=== PATIENT | male | born 1945 | race Caucasian/White ===

== ENCOUNTER 2024-03-19 19:48 | Inpatient (IN) | payer MEDICARE, SELFPAY ==
[2024-03-19] VITALS (8 sets, daily range): BP systolic 125–146; BP diastolic 75–105; BMI 21.9
[2024-03-19 14:33] LABS: % Basophils 1.1 % (0-2); % Eosinophils 0.2 % (0-6); % Immature Granulocytes 0.4 % (0-0.5); % Lymphocytes 12.1 % (20.5-51.1); % Monocytes 6.7 % (1.7-9.3); % Neutrophils 79.5 % (42.2-75.2); Absolute Basophils 0.1 10^3/uL (0-0.2); Absolute Lymphocytes 1.1 10^3/uL (1.2-3.4); Absolute Monocytes 0.6 10^3/uL (0.1-0.6); Absolute Neutrophils 7.3 10^3/uL (1.4-6.5); Hematocrit 31.1 % (39.0-52.0); Hemoglobin 10.9 g/dL (13.0-18.0); Mean Corpuscular Hgb 34.7 pg (27.0-31.0); Mean Platelet Volume 9.6 fL (7.4-10.4); Nucleated Red Blood Cells % 0 % (-); Platelet Count 298 10^3/uL (130-400); Red Blood Cell Count 3.14 10^6/uL (4.70-6.10); Red Cell Dist. Width 14.8 % (11.5-14.5); White Blood Cell Count 9.2 10^3/uL (4.8-10.8)
[2024-03-19 14:45] LABS: ALT (SGPT) 58 U/L (0-50); AST (SGOT) 96 U/L (17-59); Albumin 4.4 g/dl (3.5-5.0); Alkaline Phosphatase 74 U/L (38-126); Blood Urea Nitrogen 29 mg/dl (9-20); Calcium 10.7 mg/dl (8.4-10.2); Carbon Dioxide 21 mmol/L (22-30); Chloride 100 mmol/L (98-107); Glucose 138 mg/dl (70-99); Sodium 131 mmol/L (135-145); Total Bilirubin 0.8 mg/dl (0.2-1.3); Total Protein 6.7 g/dl (6.3-8.2); eGFR 56.93
--- NOTE | 2024-03-19 14:51 | ED.GENMED ---
History of Present Illness
General
Chief Complaint: Breathing Problem
Source: patient
Exam Limitations: none
Time Seen by Provider: 03/19/24 14:13
Travel History
Have you had any contact with someone who has COVID-19?: No
Do you have any symptoms of coronavirus? Fever > 100 degrees, chills, cough, shortness of breath, sore throat, loss of taste or smell, muscle aches, or headache?: No
History of Present Illness
History of Present Illness:
Patient has been short of breath for 2 weeks. Treated for pneumonia. Normal care at [facility]. No pleuritic chest pain no cough no fever. Short of breath at rest and significant with exertion
Past History
Past History
ED Past Medical History: Cancer
ED Past Surgical History: Appendectomy, Tonsilectomy and Other (Hernia x 2. Severed right radial artery)
Phy Exam
Physical Exam
Physical Exam:
GENERAL: Alert and oriented in no apparent distress
EYE: Orbits normal.
NECK: Supple, no thyroid palpable
ENT: Pharynx without erythema
CARDIAC: Tachycardic and regular on arrival
LUNGS: Moderate resting tachypnea
ABDOMEN: Soft, without focal tenderness or distention
NEUROLOGICAL: Alert and oriented , grossly non-focal
SKIN: Warm and dry, no rash or lesion, no discoloration, skin intact.
MUSCULOSKELETAL: No edema,no deformity.Good color
PSYCH: Normal and appropriate interaction.
Scores
Heart Failure Risk
Heart Failure Risk Score: Not Applicable
Course
Orders/Labs/Results
Orders:
Orders
03/19/24 14:00
Electrocardiogram (*1) Urgent
Reason for Study: Shortness of Breath
03/19/24 14:01
EKG- Treatment ONCE
03/19/24 14:13
Cardiac Monitoring- Treatment ONCE
IV Insert/Care/Rem.- Treatment PRN
CR Chest Portable - 1 View Urgent
Comment:
Reason For Exam: sob/syncope
Reason Study Needs to be Portable: Unable to Transport
Pulse Ox/cont/shift [RESP] Stat
Quantity: 1
03/19/24 14:27
Complete Blood Count/With Diff Urgent
Comprehensive Metabolic Panel Urgent
NT-proBNP Urgent
Troponin I Urgent
03/19/24 14:42
CT Chest Pe Study Urgent
Comment:
Reason For Exam: Short of breath/tachycardia
Abnormal Lab Results
03/19/24
14:27
RBC 3.14 L 10^6/uL
(4.70-6.10)
Hgb 10.9 L g/dL
(13.0-18.0)
Hct 31.1 L %
(39.0-52.0)
MCV 99.0 H fL
(80.0-94.0)
MCH 34.7 H pg
(27.0-31.0)
RDW 14.8 H %
(11.5-14.5)
Absolute Neuts (auto) 7.3 H 10^3/uL
(1.4-6.5)
Absolute Lymphs (auto) 1.1 L 10^3/uL
(1.2-3.4)
Neutrophils % 79.5 H %
(42.2-75.2)
Lymphocytes % 12.1 L %
(20.5-51.1)
Sodium 131 L mmol/L
(135-145)
Carbon Dioxide 21 L mmol/L
(22-30)
BUN 29 H mg/dl
(9-20)
Glucose 138 H mg/dl
(70-99)
Calcium 10.7 H mg/dl
(8.4-10.2)
AST 96 H U/L
(17-59)
ALT 58 H U/L
(0-50)
03/19/24 14:27
03/19/24 14:27
Vital Signs
Initial and Last Documented VS:
Initial Vital Signs
Temp Pulse Resp BP Pulse Ox
97.5 F 140 30 129/75 98
03/19/24 14:05 03/19/24 14:05 03/19/24 14:05 03/19/24 14:05 03/19/24 14:05
Last Documented Vital Signs
Temp Pulse Resp BP Pulse Ox
97.5 F 106 10 132/99 99
03/19/24 14:05 03/19/24 18:00 03/19/24 18:00 03/19/24 18:00 03/19/24 18:00
MDM/Problems Addressed
Differential Diagnosis Includes:
Significant dyspnea on exertion. Unclear etiology. Possible primary pulmonary issue. However quite tachycardic on arrival to the ER. Warrants further hospitalization and management
*Pulse Oximetry
Patient hypoxic: no
*EKG
Interpreted by ED Provider?: Yes
Interpretation: abnormal
Comparison EKG: changes noted
Heart Rate: 133
Rate: tachycardiac
Rhythm: sinus
Interval: normal interval
QRS Pattern: right bundle branch block
Ischemia: non-specific ST changes
*Steam Plant Control Room Operator Interpretation
Rate: tachycardiac
Interpretation: abnormal
Heart Rate: 115
Rhythm: sinus
*Critical Care Note
Total Time (30-74mins, 75-104mins- exclusive of procedures): Not Applicable
ED Attending Note
-
Portions of this chart may have been created with voice recognition software.� Occasional wrong word or��sound alike� substitutions may have occurred due to the inherent limitations of voice recognition software.
Discharge Plan
Departure
Patient Disposition: Admit
Date of Disposition: 03/19/24
Time of Disposition: 17:17
Presentation/result/management discussed w/ accepting MD/DO: Hospitalist
Discharge Problem:
Severe dyspnea and dyspnea on exertion
Prescriptions:
No Action
diphenoxylate-atropine 2.5-0.025 mg Tablet
1 tab PO QIDPRN PRN (Reason: chemo-induced diarrhea)
pantoprazole 40 mg Tablet,Delayed Release (Dr/Ec)
40 mg PO DAILY
lisinopril 10 mg Tablet
20 mg PO DAILY
metoprolol succinate 25 mg Tablet Extended Release 24 Hr
25 mg PO DAILY
albuterol sulfate 90 mcg/actuation Hfa Aerosol Inhaler
2 puff INHALATION R Q4HPRN PRN (Reason: sob)
cholecalciferol (vitamin D3)
1 tab PO DAILY
cyanocobalamin (vitamin B-12)
1 tab PO DAILY
magnesium
1 tab PO DAILY
atorvastatin 40 mg Tablet
40 mg PO DAILY
Patient Comments:
03/19/2024, last filled on 06/16/2023 for 90-day supply.
Referrals:
UNKNOWN - PT DOES,NOT KNOW [Family Provider] -
Interventions
Interventions:
*Risk Screen - Suicide Last Done: 03/19/24 14:32
*General Assessment Last Done: 03/19/24 14:32
*Neglect/Abuse Screening Last Done: 03/19/24 14:32
*ED COVID-19 Vaccine History Last Done: 03/19/24 14:32
ED- Cardiac Assessment Last Done: 03/19/24 14:20
ED- Pulmonary Assessment Last Done: 03/19/24 14:21
Discharge Date and Time
Print Language: VENEZUELAN
[2024-03-19 14:56] LABS: NT-proBNP 354 pg/ml; Troponin I < 0.012 ng/ml
--- NOTE | 2024-03-19 19:13 | HPS.HSE ---
Family Physician
-
Family Physician: NOT KNOW UNKNOWN - PT DOES
Chief Complaint
-
dyspnea on exertion
History of Present Illness
78 man who has been short of breath for 2 weeks, progressively worsening, leading today to severe MEDINA. He has a history of chronic bronchitis, with multiple episodes a year, usually managed with mucinex. He was Treated for presumed pneumonia as an
outpatient for this current episode. His Normal health care is at [facility]. No pleuritic chest pain no cough no fever. some Short of breath at rest and significantly worse with exertion. He is getting chemo for prostate cancer at
this time.
Medical History
Past Medical History
Past Medical History: Reports Other
Additional Past Medical History:
prostate Cancer, getting chemoo through a port on chest
Appendectomy,
Tonsilectomy
Hernia x 2.
Severed right radial artery
frequent bhronchitis
high cholesterol
Essential HTN
GERD
Past Surgical History: Reports Other
Additional Past Surgical History:
See above
Social History
Tobacco: Non-smoker
Alcohol: Occasional
Drug: None
Family History
Family History: Not pertinent
Allergies / Home Medications
Allergies reflects when Allergies were last updated in [facility].
Home Medications with original date entered in [facility]
Allergy/Medication List:
Allergies
Allergy/AdvReac Type Severity Reaction Status Date / Time
No Known Allergies Allergy Unverified 03/19/24 14:00
Home Medications
albuterol sulfate 90 mcg/actuation aerosol inhaler 2 puff inhalation R Q4HPRN PRN sob 03/19/24
atorvastatin 40 mg tablet 40 mg PO DAILY 03/19/24
cholecalciferol (vitamin D3) 1 tab PO DAILY 03/19/24
cyanocobalamin (vitamin B-12) 1 tab PO DAILY 03/19/24
diphenoxylate-atropine 2.5 mg-0.025 mg tablet 1 tab PO QIDPRN PRN chemo-induced diarrhea 03/19/24
lisinopril 10 mg tablet 20 mg PO DAILY 03/19/24
magnesium 1 tab PO DAILY 03/19/24
metoprolol succinate 25 mg tablet,extended release 24 hr 25 mg PO DAILY 03/19/24
pantoprazole 40 mg tablet,delayed release 40 mg PO DAILY 03/19/24
Review of Systems
-
History Source: Patient
A 12 point ROS was completed and negative except as noted: Yes
Physical Exam
Vital Signs
Vital Signs
Temp Pulse Resp BP Pulse Ox
97.5 F 106 10 132/99 99
03/19/24 14:05 03/19/24 18:00 03/19/24 18:00 03/19/24 18:00 03/19/24 18:00
Physical Exam
General: Well Developed, Well Nourished, No Apparent Distress, Comfortable and Conversant
HEENT: [place] Conjunctivae, Nose Appears Normal and Ears Appear Normal; No Good Dentition
Respiratory: Clear
Cardiac: S1/S2 and Irregular Rhythm
GI: Soft, Non Tender and Non Distended
Musculoskeletal: No Clubbing, No Cyanosis and No Edema
Skin: Warm and Dry; No Rash
Neuro: Awake, Alert, Oriented and AO x 3
Psych: Calm
Laboratory Results
-
03/19/24 14:27
03/19/24 14:27
Laboratory Results
Total Bilirubin 0.8 mg/dl (0.2-1.3) 03/19/24 14:27
AST 96 U/L (17-59) H 03/19/24 14:27
ALT 58 U/L (0-50) H 03/19/24 14:27
Alkaline Phosphatase 74 U/L (38-126) 03/19/24 14:27
Troponin I < 0.012 ng/ml 03/19/24 14:27
Data Reviewed
-
Lab Data: Labs Reviewed by me
Impression/Plan
-
IMPRESSION:
[address] and CXR show no dz. No baseline labs to compare. Other findings:
pulse of 106
New RBBB
NA 131
BUN 29
PLAN:
1. MEDINA, likely viral bronchitis/ COPD
Treat as a copd exacerbation
If not better in am, consult pulmonary
ZACHARY (given ECG change)
Telemetry
2. Na of 131 - likely hypovolemic hyponatremia
Saline overnight
recheck in am
3. BUN/Creat > 20, likely poor po intake
Saline overnight
Recheck in am
Full code
VCD for DVTp
--- NOTE | 2024-03-19 20:40 | PTCARENOTE ---
Pt arrived to unit from ED and ambulated with x1 assist from stretcher to bed. BP on admission 146/99, HR 112. Pt denies any pain at this time but pt reports feeling dizzy when standing and ambulating. Pt oriented to room, call dolan within reach.
IV NS infusing at 100 mL/hr per order. Pt swabbed by this RN for covid and flu A+B. Will continue to monitor.
[2024-03-19] MEDS: NSS 1000 IV (21:22)
[2024-03-19] MEDS: DELTASONE 40 MG PO (21:23)
[2024-03-19 21:25] LABS: COVID-19 Antigen Negative (Negative)
[2024-03-19] MEDS: VIBRAMYCIN 100 MG PO (21:25)
[2024-03-19] MEDS: DUONEB 3 ML INH (21:29)
[2024-03-20] VITALS (8 sets, daily range): BP systolic 91–146; BP diastolic 52–82
--- NOTE | 2024-03-20 06:04 | PTCARENOTE ---
Pt's baseline HR at rest 70s-80s. Pt ambulated to BR with x1 assist and HR went up to 140. Pt asymptomatic except for shortness of breath; pt states this has been his baseline for the past 3 days. HR back in 70s after pt placed back in bed.
[place] CIVILIAN JAIL OFFICER Brittney Silva notified, no new orders at this time.
[2024-03-20] MEDS: LOMOTIL 1 TABLET PO (06:08)
--- NOTE | 2024-03-20 07:27 | PTCARENOTE ---
Pt had two episodes of v-tach while lying in bed at 0614 and 0630 this morning respectively. Both episodes were 20-beats and pt went back to normal sinus in the 70s; pt was asymptomatic for both episodes. House DISCOUNT CLERK Brittney Silva notified about
both episodes and that magnesium was not ordered with AM labs; CAITIE Silva ordered mag to be added to AM labs. Will continue to monitor.
[2024-03-20] MEDS: DUONEB 3 ML INH ×4 (07:32→17:58)
[2024-03-20 08:29] LABS: % Basophils 0.4 % (0-2); % Immature Granulocytes 0.8 % (0-0.5); % Monocytes 3.9 % (1.7-9.3); % Neutrophils 81.9 % (42.2-75.2); Absolute Lymphocytes 0.3 10^3/uL (1.2-3.4); Absolute Monocytes 0.1 10^3/uL (0.1-0.6); Absolute Neutrophils 2.1 10^3/uL (1.4-6.5); Hematocrit 27.4 % (39.0-52.0); Hemoglobin 9.3 g/dL (13.0-18.0); Mean Corp Hgb Conc. 33.9 g/dL (33.0-37.0); Mean Corpuscular Hgb 34.2 pg (27.0-31.0); Mean Corpuscular Volume 100.7 fL (80.0-94.0); Nucleated Red Blood Cells % 0 % (-); Platelet Count 236 10^3/uL (130-400); Red Blood Cell Count 2.72 10^6/uL (4.70-6.10); Red Cell Dist. Width 14.8 % (11.5-14.5); White Blood Cell Count 2.5 10^3/uL (4.8-10.8)
[2024-03-20 08:57] LABS: Magnesium 1.3 mg/dl (1.6-2.3)
[2024-03-20 08:59] LABS: Blood Urea Nitrogen 23 mg/dl (9-20); Calcium 9.7 mg/dl (8.4-10.2); Carbon Dioxide 20 mmol/L (22-30); Chloride 102 mmol/L (98-107); Estimated Creatinine Clearance 47 ml/min; Glucose 162 mg/dl (70-99); Potassium 3.9 mmol/L (3.5-5.1); Sodium 129 mmol/L (135-145); eGFR > 60.00
[2024-03-20] MEDS: ZESTRIL 20 MG PO (10:04)
[2024-03-20] MEDS: MAGNESIUM OXIDE 500 MG PO (10:04)
[2024-03-20] MEDS: VITAMIN B-12 1000 MCG PO (10:04)
[2024-03-20] MEDS: TOPROL XL 25 MG PO (10:04)
[2024-03-20] MEDS: PROTONIX 40 MG PO (10:04)
[2024-03-20] MEDS: VITAMIN D3 (cholecalciferol) 25 MCG PO (10:05)
[2024-03-20] MEDS: VIBRAMYCIN 100 MG PO ×2 (10:05→20:17)
[2024-03-20] MEDS: LIPITOR 40 MG PO (10:05)
[2024-03-20] MEDS: DECADRON 4 MG IV ×2 (10:06→20:18)
[2024-03-20] MEDS: NSS 1000 IV (10:12)
[2024-03-20] MEDS: DELTASONE PO (10:19)
[2024-03-20] MEDS: MAGNESIUM SULFATE 100 IV (10:53)
--- NOTE | 2024-03-20 11:55 | W.PN.HOSP.TC ---
Today's Communication/Plan
-
Started on IV steroids
Continue bronchodilators
Continue p.o. Doxy
Increase metoprolol
Replete mag
Assessment / Plan
Assessment / Plan
IMPRESSION:
[address] and CXR show no dz. No baseline labs to compare. Patient receives all his care at [facility]
PLAN:
MEDINA, likely viral bronchitis/ COPD
Start patient on IV steroids
Continue with bronchodilators
Agree with doxycycline
Follows with pulmonary in [place]
CT chest negative for pulmonary medicine. Mild ascending aortic. No pleural effusions. No pulmonary edema.
Na of 131 - likely hypovolemic hyponatremia
Cont with IVF
If no improvement check urine studies
Elevated creatinine likely secondary p.o. decreased p.o. intake
Baseline labs to compare
Continue with normal saline
Hypomagnesemia
Replete and monitor
NSVT
Replete mag
Increase toprol dose
monitor on tele
No chest pain. Denies any prior cardiac history.
Prostate cancer
Follows with urologist in [place]
Full Code
DVT ppx-lovenox
Anticipated Discharge: > 48 hours
Subjective/Interval History
-
Date of Service: March 20, 2024
Overnight episode of NSVT
Patient denies any palpitations or chest pain
States breathing has improved
Objective Data
-
Labs:
Laboratory Results
03/20/24 03/20/24
06:00 08:10
WBC 2.5 L
Hgb 9.3 L
Hct 27.4 L
Plt Count 236 D
Sodium 129 L
Potassium 3.9
Chloride 102
Carbon Dioxide 20 L
BUN 23 H
Creatinine 1.2
Glucose 162 H
Calcium 9.7
Vital Signs:
Vital Signs
Temp Pulse Resp BP Pulse Ox
98.6 F 81 18 146/82 100
03/20/24 07:17 03/20/24 07:38 03/20/24 07:38 03/20/24 07:17 03/20/24 07:38
I&O
03/19/24 03/20/24 03/21/24
06:59 06:59 06:59
Intake Total 1759
Balance 1759 / 1759
Data Reviewed
-
Total Time Spent with Patient (in minutes): 55
[2024-03-20] MEDS: TOPROL XL 12.5 MG PO (12:24)
[2024-03-20] MEDS: NSS IV (15:55)
[2024-03-20] MEDS: ProAmatine 10 MG PO (17:33)
[2024-03-20] MEDS: LOVENOX 40 MG SC (17:37)
[2024-03-20] MEDS: MELATONIN 5 MG PO (20:17)
[2024-03-21] VITALS (7 sets, daily range): BP systolic 90–128; BP diastolic 55–96; PULSE 64–73; O2SAT 99; BMI 21.9
[2024-03-21] MEDS: DUONEB 3 ML INH ×4 (07:56→18:18)
[2024-03-21] MEDS: TOPROL XL 25 MG PO (09:10)
[2024-03-21] MEDS: MAGNESIUM OXIDE 500 MG PO (09:10)
[2024-03-21] MEDS: VIBRAMYCIN 100 MG PO ×2 (09:11→20:38)
[2024-03-21] MEDS: ZESTRIL 20 MG PO (09:11)
[2024-03-21] MEDS: VITAMIN D3 (cholecalciferol) 25 MCG PO (09:11)
[2024-03-21] MEDS: PROTONIX 40 MG PO (09:11)
[2024-03-21] MEDS: LIPITOR 40 MG PO (09:11)
[2024-03-21] MEDS: VITAMIN B-12 1000 MCG PO (09:11)
[2024-03-21] MEDS: DECADRON 4 MG IV ×2 (09:14→20:38)
--- NOTE | 2024-03-21 10:01 | W.PN.HOSP.TC ---
Today's Communication/Plan
-
Check labs
Ambulatory pulse ox on room air
Discharge planning
Assessment / Plan
Assessment / Plan
Gen-AAOx3, NAD
HEENT-NC, AT, anicteric, clear oral mm
Neck-supple
CV-reg, no M, +S1/S2
Lungs-clear B/L
Abd-soft, NT, ND
Ext-no edema
Musculoskeletal-no cyanosis, clubbing
Skin-warm and dry
Neuro-grossly non-focal
Psych-calm, cooperative
Acute COPD exacerbation -improving clinically. No wheezing today. Continue steroids, inhalers, doxycycline. Add Acapella. Check ambulatory pulse ox on room air.
Follows with pulmonary in [place]
CT chest negative for pulmonary medicine. Mild ascending aortic. No pleural effusions. No pulmonary edema.
Hyponatremia -possibly hypovolemic. Labs pending for today.
Cont with IVF
If no improvement check urine studies
Elevated creatinine likely secondary p.o. decreased p.o. intake
Baseline labs to compare
Continue with normal saline
Bicytopenia -recheck CBC today.
Hypomagnesemia -recheck magnesium today.
NSVT -possibly due to hypomagnesemia. Resolved. Continue Toprol-XL.
Prostate cancer -on chemotherapy.
Follows with urologist in [place]
Full Code
DVT ppx-lovenox
Dispo - potential discharge in the next 24 hours if stable.
Anticipated Discharge: Within 24 hours
Subjective/Interval History
-
Date of Service: March 21, 2024
Patient seen and examined. No complaints. Shortness of breath improving.
Objective Data
-
Labs:
Laboratory Results
03/21/24 03/21/24
09:51 09:52
WBC Pending
Hgb Pending
Hct Pending
Plt Count Pending
Sodium Pending
Potassium Pending
Chloride Pending
Carbon Dioxide Pending
BUN Pending
Creatinine Pending
Glucose Pending
Calcium Pending
Total Bilirubin Pending
AST Pending
ALT Pending
Alkaline Phosphatase Pending
Vital Signs:
Vital Signs
Temp Pulse Resp BP Pulse Ox
97.6 F 84 16 128/96 100
03/21/24 07:00 03/21/24 09:10 03/21/24 08:00 03/21/24 09:10 03/21/24 08:00
I&O
03/20/24 03/21/24 03/22/24
06:59 06:59 06:59
Intake Total 1760 / 1760 1100 / 1100
Balance 1760 / 1760 1100 / 1100
Review of Systems
-
History Source: Patient
All other systems: Reviewed and negative
[2024-03-21 10:31] LABS: % Basophils 0.2 % (0-2); % Immature Granulocytes 0.6 % (0-0.5); % Lymphocytes 16.6 % (20.5-51.1); % Monocytes 5.5 % (1.7-9.3); % Neutrophils 77.1 % (42.2-75.2); Absolute Lymphocytes 0.8 10^3/uL (1.2-3.4); Absolute Monocytes 0.3 10^3/uL (0.1-0.6); Absolute Neutrophils 3.9 10^3/uL (1.4-6.5); Hematocrit 24.9 % (39.0-52.0); Hemoglobin 8.3 g/dL (13.0-18.0); Mean Corp Hgb Conc. 33.3 g/dL (33.0-37.0); Mean Corpuscular Hgb 33.7 pg (27.0-31.0); Mean Corpuscular Volume 101.2 fL (80.0-94.0); Mean Platelet Volume 10.1 fL (7.4-10.4); Nucleated Red Blood Cells % 0 % (-); Platelet Count 229 10^3/uL (130-400); Red Blood Cell Count 2.46 10^6/uL (4.70-6.10); Red Cell Dist. Width 14.7 % (11.5-14.5); White Blood Cell Count 5.1 10^3/uL (4.8-10.8)
[2024-03-21 11:10] LABS: ALT (SGPT) 35 U/L (0-50); AST (SGOT) 49 U/L (17-59); Albumin 3.1 g/dl (3.5-5.0); Alkaline Phosphatase 55 U/L (38-126); Blood Urea Nitrogen 24 mg/dl (9-20); Carbon Dioxide 20 mmol/L (22-30); Chloride 105 mmol/L (98-107); Estimated Creatinine Clearance 43 ml/min; Glucose 113 mg/dl (70-99); Magnesium 2.2 mg/dl (1.6-2.3); Potassium 3.9 mmol/L (3.5-5.1); Sodium 132 mmol/L (135-145); Total Bilirubin 0.4 mg/dl (0.2-1.3); Total Protein 5.2 g/dl (6.3-8.2); eGFR 56.93
--- NOTE | 2024-03-21 15:13 | CM ---
manager event reviewed patient's chart and met with patient and patient lives with his sister in a one story home with no steps to enter, patient is independent with adl's and ambulation, no dme, patient drives, home when stable, no needs. Patient
has a prescription plan and uses [facility].
Plan; Home with sister when stable, patient to have his friend pick him up.
[2024-03-21] MEDS: LOVENOX 40 MG SC (18:01)
[2024-03-22 03:46] VITALS: BP 114/63
[2024-03-22] MEDS: DUONEB 3 ML INH ×2 (07:23→11:18)
[2024-03-22 07:30] VITALS: BP 107/60
[2024-03-22] MEDS: MAGNESIUM OXIDE 500 MG PO (08:26)
[2024-03-22] MEDS: VIBRAMYCIN 100 MG PO (08:26)
[2024-03-22] MEDS: ZESTRIL 20 MG PO (08:26)
[2024-03-22] MEDS: LIPITOR 40 MG PO (08:26)
[2024-03-22] MEDS: VITAMIN B-12 1000 MCG PO (08:26)
[2024-03-22] MEDS: PROTONIX 40 MG PO (08:26)
[2024-03-22] MEDS: TOPROL XL 25 MG PO (08:27)
[2024-03-22 08:28] VITALS: BP 132/68; PULSE 77; O2SAT 99
[2024-03-22 08:29] VITALS: BP 132/68; PULSE 77; O2SAT 99
[2024-03-22] MEDS: DECADRON 4 MG IV (08:29)
[2024-03-22] MEDS: VITAMIN D3 (cholecalciferol) 25 MCG PO (08:33)
--- NOTE | 2024-03-22 09:21 | W.PN.HOSP.TC ---
Today's Communication/Plan
-
Await labs
Discharge
Assessment / Plan
Assessment / Plan
Gen-AAOx3, NAD
HEENT-NC, AT, anicteric, clear oral mm
Neck-supple
CV-reg, no M, +S1/S2
Lungs-clear B/L
Abd-soft, NT, ND
Ext-no edema
Musculoskeletal-no cyanosis, clubbing
Skin-warm and dry
Neuro-grossly non-focal
Psych-calm, cooperative
Acute COPD exacerbation -improving clinically. No wheezing today. Continue steroids, inhalers, doxycycline, Acapella. Ambulatory pulse ox on room air was normal, does not qualify for home oxygen.
Follows with pulmonary in [place], but he wants to start seeing pulmonary at . Will provide information.
CT chest negative for pulmonary embolism. Mild ascending aortic. No pleural effusions. No pulmonary edema.
Hyponatremia -possibly hypovolemic. Labs pending for today.
Cont with IVF
If no improvement check urine studies
Elevated creatinine likely secondary p.o. decreased p.o. intake
Baseline labs to compare
Continue with normal saline
Bicytopenia -likely due to chemotherapy. CBC pending for today.
Hypomagnesemia -improved.
NSVT -possibly due to hypomagnesemia. Resolved. Continue Toprol-XL.
Prostate cancer -on chemotherapy.
Follows with urologist in [place]
Full Code
DVT ppx-lovenox
Dispo -anticipate discharge today if labs stable. Outpatient follow-up.
Anticipated Discharge: Today
Subjective/Interval History
-
Date of Service: March 22, 2024
Patient seen and examined. Denies shortness of breath. Complaining of mucus in his chest.
Objective Data
-
Labs:
Laboratory Results
03/22/24
09:13
WBC Pending
Hgb Pending
Hct Pending
Plt Count Pending
Sodium Pending
Potassium Pending
Chloride Pending
Carbon Dioxide Pending
BUN Pending
Creatinine Pending
Glucose Pending
Calcium Pending
Vital Signs:
Vital Signs
Temp Pulse Resp BP Pulse Ox
98.1 F 68 20 107/60 98
03/22/24 07:30 03/22/24 08:32 03/22/24 08:32 03/22/24 08:26 03/22/24 08:32
I&O
03/21/24 03/22/24 03/23/24
06:59 06:59 06:59
Intake Total 1100 / 1100
Balance 1100 / 1100
Review of Systems
-
History Source: Patient
All other systems: Reviewed and negative
[2024-03-22 10:34] LABS: % Immature Granulocytes 0.2 % (0-0.5); % Lymphocytes 10.1 % (20.5-51.1); % Monocytes 2.9 % (1.7-9.3); % Neutrophils 86.8 % (42.2-75.2); Absolute Lymphocytes 0.4 10^3/uL (1.2-3.4); Absolute Monocytes 0.1 10^3/uL (0.1-0.6); Absolute Neutrophils 3.6 10^3/uL (1.4-6.5); Hematocrit 25.3 % (39.0-52.0); Hemoglobin 8.2 g/dL (13.0-18.0); Mean Corp Hgb Conc. 32.4 g/dL (33.0-37.0); Mean Corpuscular Hgb 33.6 pg (27.0-31.0); Mean Corpuscular Volume 103.7 fL (80.0-94.0); Nucleated Red Blood Cells % 0 % (-); Platelet Count 200 10^3/uL (130-400); Red Blood Cell Count 2.44 10^6/uL (4.70-6.10); Red Cell Dist. Width 14.5 % (11.5-14.5); White Blood Cell Count 4.2 10^3/uL (4.8-10.8)
[2024-03-22 10:43] LABS: Blood Urea Nitrogen 23 mg/dl (9-20); Carbon Dioxide 20 mmol/L (22-30); Chloride 103 mmol/L (98-107); Estimated Creatinine Clearance 47 ml/min; Glucose 123 mg/dl (70-99); Potassium 4.2 mmol/L (3.5-5.1); Sodium 133 mmol/L (135-145); eGFR > 60.00
[2024-03-22 11:11] VITALS: BP 106/78
--- NOTE | 2024-03-22 11:52 | W.DS.TRANS ---
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
-
Discharge Instructions:
Discharge Diagnosis/Procedures COPD exacerbation, anemia, hyponatremia
Diet Restrict fluids to 48 oz,Regular
Activity As tolerated
Driving Restrictions As prior to admission
Bathing Restrictions None
Instructions:
Stand-Alone Forms:
Changes to Home Medications: No
Discharge Medications:
DC Medications w/original date entered in [employer]
albuterol sulfate 90 mcg/actuation aerosol inhaler 2 puff inhalation R Q4HPRN PRN sob 03/19/24
atorvastatin 40 mg tablet 40 mg PO DAILY 03/19/24
cholecalciferol (vitamin D3) 1 tab PO DAILY 03/19/24
cyanocobalamin (vitamin B-12) 1 tab PO DAILY 03/19/24
diphenoxylate-atropine 2.5 mg-0.025 mg tablet 1 tab PO QIDPRN PRN chemo-induced diarrhea 03/19/24
lisinopril 10 mg tablet 20 mg PO DAILY 03/19/24
magnesium 1 tab PO DAILY 03/19/24
metoprolol succinate 25 mg tablet,extended release 24 hr 25 mg PO DAILY 03/19/24
pantoprazole 40 mg tablet,delayed release 40 mg PO DAILY 03/19/24
doxycycline hyclate 100 mg capsule 100 mg PO Q12 #8 caps 03/22/24
ipratropium 0.5 mg-albuterol 3 mg (2.5 mg base)/3 mL nebulization soln 3 ml inhalation R Q4HPRN PRN shortness of breath/wheezing #180 mL 03/22/24
ipratropium 0.5 mg-albuterol 3 mg (2.5 mg base)/3 mL nebulization soln 3 ml inhalation R QID #180 mL 03/22/24
prednisone 10 mg tablet 10 mg PO DIRECTED #30 tabs 03/22/24
Home Medication Changes
Pending Results: No
--- NOTE | 2024-03-22 12:21 | CM ---
Chart reviewed and patient is for discharge to home today, patient has been given a script for a nebulizer, business case analyst reached out to patient's pharmacy, [facility] and [facility] and they have a Nebulizer with a cost of $32.64 patient made
aware that a nebulizer is available through his pharmacy. Patient's friend to transport patient to home today.
Plan; Home today no needs.
== END 2024-03-22 14:03 | disposition home or self-care (01) | DRG 191 ==
LOC: 4 WEST ACU 19:48
PROVIDERS: Nurse Practitioner Family; ADMITTING PHYSICIAN Internal Medicine; ATTENDING PHYSICIAN Hospitalist; EMERGENCY PHYSICIAN Emergency Medicine
DX: J44.1 Chronic obstructive pulmonary disease with (acute) exacerbation (principal); E87.1 Hypo-osmolality and hyponatremia; I47.20 Ventricular tachycardia, unspecified; C61 Malignant neoplasm of prostate; E83.42 Hypomagnesemia
CPT/HCPCS: 71045; 71275; 80048; 80053; 83735; 83880; 84484; 85025; 87502; 87811; 90677; 93005; 94640; 94760; 94761; 97162; 97166; 99285; G0009; Q9967

== ENCOUNTER 2025-10-06 12:49 | Emergency (ER) | payer MEDICARE, SELFPAY ==
[2025-10-06] VITALS (12 sets, daily range): BP systolic 100–132; BP diastolic 57–102; BMI 18.3
[2025-10-06] MEDS: TYLENOL 650 MG PO (16:34)
[2025-10-06 17:39] LABS: Hematocrit 24.7 % (39.0-52.0); Hemoglobin 8.7 g/dL (13.0-18.0); Mean Corp Hgb Conc. 35.2 g/dL (33.0-37.0); Mean Corpuscular Volume 96.9 fL (80.0-94.0); Nucleated Red Blood Cells % 0 % (-); Platelet Count 266 10^3/uL (130-400); Red Cell Dist. Width 11.9 % (11.5-14.5)
[2025-10-06] MEDS: DILAUDID 0.5 MG IV ×2 (18:04→22:34)
[2025-10-06 18:09] LABS: ALT (SGPT) 17 U/L (0-50); AST (SGOT) 24 U/L (17-59); Albumin 2.9 g/dl (3.5-5.0); Alkaline Phosphatase 190 U/L (38-126); Blood Urea Nitrogen 28 mg/dl (9-20); Calcium 8.5 mg/dl (8.4-10.2); Carbon Dioxide 24 mmol/L (22-30); Chloride 105 mmol/L (98-107); Estimated Creatinine Clearance 22 ml/min; Glucose 107 mg/dl (70-99); Potassium 4.2 mmol/L (3.5-5.1); Sodium 132 mmol/L (135-145); Total Protein 5.7 g/dl (6.3-8.2); eGFR 31.82
[2025-10-06 18:13] LABS: Troponin I 0.022 ng/ml
[2025-10-06 18:18] LABS: Urine Character Slightly Cloudy (Clear)
[2025-10-06 18:31] LABS: Urine Red Blood Cell 40-50 /HPF (0-2); Urine Squamous Cell 0-2 /LPF (Few); Urine White Cell 30-40 /HPF (0-5)
--- NOTE | 2025-10-06 20:04 | ED.GENMED ---
History of Present Illness
<Mimi Hawk MD - Last Filed: 10/06/25 20:05>
General
Chief Complaint: Fall
Time Seen by Provider: 10/06/25 16:25
<Jeovany Dexter Jr., PA-C - Last Filed: 10/07/25 15:16>
General
Source: patient and ambulance crew
Exam Limitations: none
Nursing documentation reviewed up to this point in time: agreed with
History of Present Illness
History of Present Illness:
79-year-old male with significant comorbidities presenting today after a ground level fall landing on his left hip and hitting his left forehead. Did not lose consciousness and not currently on anticoagulants. Did sustain a laceration above the
left eyebrow and cannot move at the left hip since the fall. Does have a history of hypertension hyperlipidemia has [address] previous prostate cancer, has a history of PE not currently anticoagulated due to bleeding issues was
recently admitted to a hospital in [place] and left AMA a few days ago.
Past History
<Mimi Hawk MD - Last Filed: 10/06/25 20:05>
Past History
ED Past Medical History: Cancer
ED Past Surgical History: Appendectomy, Tonsilectomy and Other (Hernia x 2. Severed right radial artery)
Review of Systems
<Jeovany Dexter Jr., PA-C - Last Filed: 10/07/25 15:16>
Review of Systems
Allergies reviewed?: Yes
All Other Systems: ROS reviewed and negative except as documented in HPI and ROS
Phy Exam
<Jeovany Dexter Jr., PA-C - Last Filed: 10/07/25 15:16>
Physical Exam
Physical Exam:
GENERAL: Alert , in no apparent distress
EYE: pupils equal and reactive
NECK: Supple, no significant adenopathy.
ENT: Laceration just above the left lateral eyebrow roughly 1 cm length subcutaneous in depth o/p clr, mmm.
CARDIAC: Regular rate and rhythm .
LUNGS: Clear breath sounds bilaterally, no acute respiratory distress, no wheezes/rales/rhonchi
ABDOMEN: Soft, without focal tenderness, no r/g, no cvat
NEUROLOGICAL: Alert and oriented, no focal neuro deficits
SKIN: Warm and dry, skin intact.
MUSCULOSKELETAL: No edema, well perfused.
PSYCH: Normal and appropriate interaction.
Unable to move the left hip tenderness to palpation at the left hip no tenderness throughout the remainder of the lower extremities bilaterally no tenderness or discomfort to the upper extremities bilaterally.
Course
<Mimi Hawk MD - Last Filed: 10/06/25 20:05>
Orders/Labs/Results
Orders:
Orders
10/06/25 16:32
Acetaminophen [Tylenol] 650 mg .ROUTE .STK-MED ONE
10/06/25 16:33
Acetaminophen [Tylenol] 650 mg PO NOW STA
10/06/25 16:40
EKG [Electrocardiogram (*1)] Urgent
Reason for Study: Chest Pain
CT Cervical Spine W/o Iv Contr Urgent
Comment:
Reason For Exam: fall hit head
CT Chest PE Study Urgent
Comment:
Reason For Exam: sob, CA hx, hx of clots hospitalized
CT Head W/o Iv Contrast Urgent
Comment:
Reason For Exam: fall hit head
Hip, Left 2-3 Views [CR Hip - LT w/wo Pel 2-3 Vw*] Urgent
Comment:
Reason For Exam: fall left hip pain
Include a pelvis x-ray?: Yes
10/06/25 16:41
EKG- Treatment ONCE
10/06/25 17:33
BNP [NT-proBNP] Urgent
CBC/With Diff [Complete Blood Count/With Diff] Urgent
CMP [Comprehensive Metabolic Panel] Urgent
Troponin I Urgent
10/06/25 17:51
HYDROmorphone [Dilaudid] 0.5 mg IV NOW STA
10/06/25 17:53
Urinalysis Reflex To Culture Urgent
Date Specimen was Collected: 10/06/25
Time Specimen was Collected: 17:33
Urine Microscopic Reflex Cult Urgent
Urine Culture Urgent
MATTHEW Source: U
Specimen Description:
Date Specimen was Collected: 10/06/25
Time Specimen was Collected: 17:33
10/06/25 18:33
0.9% Sodium Chloride 500 ml [Nss] 500 ml IV BOLUS
10/06/25 20:08
US Renal With Bladder Urgent
Comment:
Reason For Exam: nephrostomy tube malfunction left side
10/06/25 21:06
PRN Pain Medication Management As Directed
May give lesser potent ordered pain med per pt: Yes
preference::
Protocol:: Medication orders for pain may be administered in a
manner that supports deferring to patient preference
when the pt is:
- Requesting an ordered lesser potent pain medication.
Least to most potent pain medications are defined
as: acetaminophen < NSAID < tramadol < opioids
(morphine, oxycodone, hydromorphone).
- Requesting a lesser dose of the same medication IF
ORDERED.
- Requesting a less intrusive route of administration
if both routes are prescribed by the provider (PO <
IV).
10/06/25 21:07
Code Status As Directed
Resuscitation Status: Full Code
10/06/25 22:31
HYDROmorphone [Dilaudid] 0.5 mg IV NOW STA
Abnormal Lab Results
10/06/25 10/06/25
17:33 17:53
RBC 2.55 L 10^6/uL
(4.70-6.10)
Hgb 8.7 L g/dL
(13.0-18.0)
Hct 24.7 L %
(39.0-52.0)
MCV 96.9 H fL
(80.0-94.0)
MCH 34.1 H pg
(27.0-31.0)
Abs Immat Gran (auto) 0.1 H 10^3/uL
(0-0.05)
Absolute Neuts (auto) 9.3 H 10^3/uL
(1.4-6.5)
Absolute Lymphs (auto) 0.8 L 10^3/uL
(1.2-3.4)
Immature Gran % 0.8 H %
(0-0.5)
Neutrophils % 86.2 H %
(42.2-75.2)
Lymphocytes % 7.4 L %
(20.5-51.1)
Sodium 132 L mmol/L
(135-145)
BUN 28 H mg/dl
(9-20)
Creatinine 2.1 H mg/dL
(0.7-1.3)
Glucose 107 H mg/dl
(70-99)
Alkaline Phosphatase 190 H U/L
(38-126)
Total Protein 5.7 L g/dl
(6.3-8.2)
Albumin 2.9 L g/dl
(3.5-5.0)
Ur Occult Blood Reflex 4+ A
(Negative)
Leukocyte Esterase Rfl 2+ A
(Negative)
Urine RBC 40-50 A /HPF
(0-2)
Urine WBC (Reflex) 30-40 A /HPF
(0-5)
Urine Bacteria (Reflex) Few A
(Negative)
Urine Albumin (Reflex) 3+ A
(Neg - Trace)
10/06/25 17:33
10/06/25 17:33
Vital Signs
Initial and Last Documented VS:
Initial Vital Signs
Temp Pulse Resp BP Pulse Ox
97.8 F 101 16 114/87 100
10/06/25 13:11 10/06/25 13:11 10/06/25 13:11 10/06/25 13:11 10/06/25 13:11
Last Documented Vital Signs
Temp Pulse Resp BP Pulse Ox
97.8 F 82 13 118/73 98
10/06/25 13:11 10/07/25 00:45 10/07/25 00:45 10/07/25 00:35 10/07/25 00:45
<Jeovany Dexter Jr., PA-[place] - Last Filed: 10/07/25 15:16>
Orders/Labs/Results
Orders:
Orders
10/06/25 16:32
Acetaminophen [Tylenol] 650 mg .ROUTE .STK-MED ONE
10/06/25 16:33
Acetaminophen [Tylenol] 650 mg PO NOW STA
10/06/25 16:40
EKG [Electrocardiogram (*1)] Urgent
Reason for Study: Chest Pain
CT Cervical Spine W/o Iv Contr Urgent
Comment:
Reason For Exam: fall hit head
CT Chest PE Study Urgent
Comment:
Reason For Exam: sob, CA hx, hx of clots hospitalized
CT Head W/o Iv Contrast Urgent
Comment:
Reason For Exam: fall hit head
Hip, Left 2-3 Views [CR Hip - LT w/wo Pel 2-3 Vw*] Urgent
Comment:
Reason For Exam: fall left hip pain
Include a pelvis x-ray?: Yes
10/06/25 16:41
EKG- Treatment ONCE
10/06/25 17:33
BNP [NT-proBNP] Urgent
CBC/With Diff [Complete Blood Count/With Diff] Urgent
CMP [Comprehensive Metabolic Panel] Urgent
Troponin I Urgent
10/06/25 17:51
HYDROmorphone [Dilaudid] 0.5 mg IV NOW STA
10/06/25 17:53
Urinalysis Reflex To Culture Urgent
Date Specimen was Collected: 10/06/25
Time Specimen was Collected: 17:33
Urine Microscopic Reflex Cult Urgent
Urine Culture Urgent
MATTHEW Source: U
Specimen Description:
Date Specimen was Collected: 10/06/25
Time Specimen was Collected: 17:33
10/06/25 18:33
0.9% Sodium Chloride 500 ml [Nss] 500 ml IV BOLUS
10/06/25 20:08
US Renal With Bladder Urgent
Comment:
Reason For Exam: nephrostomy tube malfunction left side
10/06/25 21:06
PRN Pain Medication Management As Directed
May give lesser potent ordered pain med per pt: Yes
preference::
Protocol:: Medication orders for pain may be administered in a
manner that supports deferring to patient preference
when the pt is:
- Requesting an ordered lesser potent pain medication.
Least to most potent pain medications are defined
as: acetaminophen < NSAID < tramadol < opioids
(morphine, oxycodone, hydromorphone).
- Requesting a lesser dose of the same medication IF
ORDERED.
- Requesting a less intrusive route of administration
if both routes are prescribed by the provider (PO <
IV).
10/06/25 21:07
Code Status As Directed
Resuscitation Status: Full Code
10/06/25 22:31
HYDROmorphone [Dilaudid] 0.5 mg IV NOW STA
Abnormal Lab Results
10/06/25 10/06/25
17:33 17:53
RBC 2.55 L 10^6/uL
(4.70-6.10)
Hgb 8.7 L g/dL
(13.0-18.0)
Hct 24.7 L %
(39.0-52.0)
MCV 96.9 H fL
(80.0-94.0)
MCH 34.1 H pg
(27.0-31.0)
Abs Immat Gran (auto) 0.1 H 10^3/uL
(0-0.05)
Absolute Neuts (auto) 9.3 H 10^3/uL
(1.4-6.5)
Absolute Lymphs (auto) 0.8 L 10^3/uL
(1.2-3.4)
Immature Gran % 0.8 H %
(0-0.5)
Neutrophils % 86.2 H %
(42.2-75.2)
Lymphocytes % 7.4 L %
(20.5-51.1)
Sodium 132 L mmol/L
(135-145)
BUN 28 H mg/dl
(9-20)
Creatinine 2.1 H mg/dL
(0.7-1.3)
Glucose 107 H mg/dl
(70-99)
Alkaline Phosphatase 190 H U/L
(38-126)
Total Protein 5.7 L g/dl
(6.3-8.2)
Albumin 2.9 L g/dl
(3.5-5.0)
Ur Occult Blood Reflex 4+ A
(Negative)
Leukocyte Esterase Rfl 2+ A
(Negative)
Urine RBC 40-50 A /HPF
(0-2)
Urine WBC (Reflex) 30-40 A /HPF
(0-5)
Urine Bacteria (Reflex) Few A
(Negative)
Urine Albumin (Reflex) 3+ A
(Neg - Trace)
10/06/25 17:33
10/06/25 17:33
Vital Signs
Initial and Last Documented VS:
Initial Vital Signs
Temp Pulse Resp BP Pulse Ox
97.8 F 101 16 114/87 100
10/06/25 13:11 10/06/25 13:11 10/06/25 13:11 10/06/25 13:11 10/06/25 13:11
Last Documented Vital Signs
Temp Pulse Resp BP Pulse Ox
97.8 F 82 13 118/73 98
10/06/25 13:11 10/07/25 00:45 10/07/25 00:45 10/07/25 00:35 10/07/25 00:45
Procedures
<Jeovany Dexter Jr., PA-C - Last Filed: 10/07/25 15:16>
Laceration Closure
Left Superior Lateral Eye brow:
Status of Wound: clean
Size of Wound in cm: 1
Description of Wound Edges: sharp and surrounded by abrasion
Preparation: cleaned with saline
Revision/Debridement: routine- no revision
Wound exploration: explored to base- no FB
Type of Closure: Dermabond-skin glue
<Jeovany Dexter Jr., PA-C - Last Filed: 10/07/25 15:16>
MDM/Problems Addressed
MDM/Problems Addressed:
79-year-old male presenting to the emergency department after ground-level fall after he felt short of breath at home. Sustained a laceration above his left eyebrow and also hit his left hip. Patient found to have a hip fracture case discussed
with orthopedics and plan to admit the patient. Additionally seem to have a dislodgment of his nephrostomy tube potentially during the fall ultrasound was performed to ensure no significant hydro. Otherwise laceration repair left eyebrow, closed
with Dermabond. 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 Otherwise patient's hip fracture discussed with Ortho there was concern from Ortho
that this would not be able to be repaired at [facility] over the weekend and were recommending transfer. Patient was agreeable to go to [facility] where he was excepted by Dr. George to the internal medicine service.
<Mimi Hawk MD - Last Filed: 10/06/25 20:05>
*Pulse Oximetry
SaO2: 100
Oxygen Mode of Delivery: Room air
<Jeovnay Dexter Jr., PA-C - Last Filed: 10/07/25 15:16>
*Pulse Oximetry
Patient hypoxic: no (96)
*Critical Care Note
Total Time (30-74mins, 75-104mins- exclusive of procedures): Not Applicable
ED Attending Note
<Mimi Hawk MD - Last Filed: 10/06/25 20:05>
ED Attending Note
Patient seen and examined by attending physician: Yes
I performed the substantive portion of visit, reviewed & personally made and approve the management plan that is documented in note by myself or DEBORAH.: Yes
ED Attending Note:
79-year-old male presents emergency department status post recent fall, noted to have laceration at left eyebrow area. Patient has a history of DVT/PE although not currently anticoagulated. He is reporting nonspecific dyspnea but no chest pain.
He is noted to have a hip fracture here and will be admitted accordingly with Ortho consult. Other symptoms to be evaluated here including PE workup. He has baseline anemia here, new renal insufficiency, nonspecific troponin. CT chest head and
etc. pending
-
Portions of this chart may have been created with voice recognition software.� Occasional wrong word or��sound alike� substitutions may have occurred due to the inherent limitations of voice recognition software.
Discharge Plan
Departure
Patient Disposition: Acute Care Hospital
Date of Disposition: 10/06/25
Time of Disposition: 23:52
Patient with high blood pressure during this ER visit?: No
Condition: Fair
Covid-19: Not Applicable
Discharge Problem:
Femur fracture, Displacement of nephrostomy catheter, Chronic subdural hematoma, Anemia, CKD (chronic kidney disease), Forehead laceration
Prescriptions:
No Action
diphenoxylate-atropine 2.5-0.025 mg Tablet
1 tab PO QIDPRN PRN (Reason: chemo-induced diarrhea)
pantoprazole 40 mg Tablet,Delayed Release (Dr/Ec)
40 mg PO DAILY
lisinopril 10 mg Tablet
20 mg PO DAILY
metoprolol succinate 25 mg Tablet Extended Release 24 Hr
25 mg PO DAILY
albuterol sulfate 90 mcg/actuation Hfa Aerosol Inhaler
2 puff INHALATION R Q4HPRN PRN (Reason: sob)
cholecalciferol (vitamin D3)
1 tab PO DAILY
cyanocobalamin (vitamin B-12)
1 tab PO DAILY
magnesium
1 tab PO DAILY
atorvastatin 40 mg Tablet
40 mg PO DAILY
Patient Comments:
03/19/2024, last filled on 06/16/2023 for 90-day supply.
ipratropium-albuterol 0.5 mg-3 mg(2.5 mg base)/3 mL Solution For Nebulization
3 ml inhalation R QID Qty: 180 0RF
ipratropium-albuterol 0.5 mg-3 mg(2.5 mg base)/3 mL Solution For Nebulization
3 ml inhalation R Q4HPRN PRN (Reason: shortness of breath/wheezing) Qty: 180 0RF
doxycycline hyclate 100 mg Capsule
100 mg PO Q12 Qty: 8 0RF
prednisone 10 mg tablet
10 mg PO DIRECTED Qty: 30 0RF
Rx Instructions:
4 tabs daily x3 days, 3 tabs daily x3days, 2 tabs daily x3days, 1 tab daily x3 days.
Referrals:
UNKNOWN - PT DOES,NOT KNOW [Family Provider]
Hospital Transfer
Other hospital: [facility]
I certify that the patient requires transfer: Yes
Discussed case with accepting physician: Gilberto
Reason for transfer: medical necessity, availability of service and specialties available
Interventions
Interventions:
*Risk Screen - Suicide Last Done: 10/06/25 13:11
*General Assessment Last Done: 10/06/25 13:11
*Neglect/Abuse Screening Last Done: 10/06/25 13:11
*ED- Fall Risk Assessment Last Done: 10/06/25 14:13
*ED COVID-19 Vaccine History Last Done: 10/06/25 14:13
*ED Influenza Vaccine History Last Done: 10/06/25 14:13
*Nursing Disposition Last Done: 10/07/25 01:05
ED-Musculoskeletal Assessment Last Done: 10/06/25 14:13
ED- Neurological Assessment Last Done: 10/06/25 17:00
ED-Skin Assessment Last Done: 10/06/25 16:30
Discharge Date and Time
Discharge Date/Time: 10/07/25 01:06
Print Language: AZERI
[2025-10-06] MEDS: NSS 500 IV (20:09)
[2025-10-07 00:35] VITALS: BP 118/73
== END 2025-10-07 01:06 | disposition short-term general hospital (02) ==
LOC: EMR 12:49
PROVIDERS: Physician Assistant; EMERGENCY PHYSICIAN Emergency Medicine
DX: S72.002A Fracture of unspecified part of neck of left femur, initial encounter for closed fracture (principal); T83.022A Displacement of nephrostomy catheter, initial encounter; Y73.2 Prosthetic and other implants, materials and accessory gastroenterology and urology devices associated with adverse incidents; S01.81XA Laceration without foreign body of other part of head, initial encounter; W18.30XA Fall on same level, unspecified, initial encounter; S06.5XAA Traumatic subdural hemorrhage with loss of consciousness status unknown, initial encounter; D64.9 Anemia, unspecified; I12.9 Hypertensive chronic kidney disease with stage 1 through stage 4 chronic kidney disease, or unspecified chronic kidney disease; N18.9 Chronic kidney disease, unspecified; E78.5 Hyperlipidemia, unspecified; Z93.6 Other artificial openings of urinary tract status; Z85.46 Personal history of malignant neoplasm of prostate; Z86.711 Personal history of pulmonary embolism; Z86.718 Personal history of other venous thrombosis and embolism
CPT/HCPCS: 99285; 96374; 96376; 96361; 12011; 70450; 71275; 72125; 73502; 76770; 80053; 81003; 81015; 83880; 84484; 85025; 87077; 87086; 87186; 93005; Q9967